=== PATIENT | female | born 1975 | race Caucasian/White ===

== ENCOUNTER 2019-11-19 09:20 | Outpatient (CLI) | payer OTHER ==
--- NOTE | 2019-11-19 09:54 | RAD ---
EXAM: 4 views of the right knee HISTORY: Knee pain COMPARISON: None FINDINGS: No knee effusion is seen multiple lytic lesions are seen in the distal femur and proximal f ibula. There is periosteal reaction adjacent to the largest distal femoral lesion suggesting stress reaction. There is no evidence of acute fracture or dislocation. No significant degenerative changes are seen. No soft tissue swelling is present. IMPRESSION: Multiple lytic lesions in the femur and fibula may be secondary to lytic metastases or mu ltiple myeloma. There is stress reaction surrounding the largest lesion in the distal femur concerning for an potential stress/pathologic fracture in this location.
--- NOTE | 2019-11-19 12:44 | RAD ---
LEFT SHOULDER 3 VIEWS: HISTORY: Left shoulder pain. FINDINGS: Bones are diffusely demineralized with multiple punctate lucent lesions diffusely involving the visua lized skeletal system. There is a pathologic-appearing fracture of the distal end of the left clavic le. IMPRESSION: Innumerable lytic bone lesions with a pathologic fracture of the distal clavicle. This is compatible with metastatic disease or myeloma would be another possibility. Clinical correlation recommended. POS: [facility]
== END 2019-11-19 09:21 | disposition home or self-care (01) ==
LOC: NAV RAD 09:20
PROVIDERS: ATTEND Nurse Practitioner Family
DX: M25.512 Pain in left shoulder (principal); M25.561 Pain in right knee; M84.412A Pathological fracture, left shoulder, initial encounter for fracture; M89.9 Disorder of bone, unspecified